=== PATIENT | male | born 1970 | race American Indian/Alaskan Native ===

== ENCOUNTER 2019-01-10 12:25 | Emergency (ER) | payer SELFPAY ==
--- NOTE | 2019-01-10 12:43 | Emergency Department Report ---
Blank Doc - Documentation Documentation: This is a 48-year-old male that presents with SI. Stated has depression. This initial assessment/diagnostic orders/clinical plan/treatment(s) is/are subject to change based on patient's health status, clinical progression and re- assessment by fellow clinical providers in the ED. Further treatment and workup at subsequent clinical providers discretion. Patient/guardians urged not to elope from the ED as their condition may be serious if not clinically assessed and managed. Initial orders include: 1- Patient sent to MAIN ED for further evaluation and treatment 2- sr. director product management was notified to have patient be brought back AGA. 3- RN was notified to keep patient as close range and observation until room available 4- Patient presents with substantial risk of imminent harm to self, appears to be so unable to care for his/her own physical health and safety as to create an imminently life-endangering crisis, and has committed/expressed life endangering crisis to self. Due to this and other complaints, patient is put on 1013.
[2019-01-10 13:02] LABS: Basophils # (Auto) 0.1 K/mm3 (0.0-0.1); Basophils % (Auto) 1.1 % (0.0-1.8); Eosinophils # (Auto) 0.1 K/mm3 (0.0-0.4); Eosinophils % (Auto) 2.3 % (0.0-4.3); Hematocrit 43.9 % (35.5-45.6); Hemoglobin 14.7 gm/dl (11.8-15.2); Lymphocytes # (Auto) 2.3 K/mm3 (1.2-5.4); Lymphocytes % (Auto) 49.7 % (13.4-35.0); Mean Corpuscular HGB Conc 33 % (32-34); Mean Corpuscular Volume 84 fl (84-94); Monocytes # (Auto) 0.4 K/mm3 (0.0-0.8); Monocytes % (Auto) 7.8 % (0.0-7.3); Platelet Count 235 K/mm3 (140-440); Red Blood Count 5.24 M/mm3 (3.65-5.03); Red Cell Distribution Width 13.5 % (13.2-15.2)
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
[2019-01-10 13:23] LABS: BUN/Creatinine Ratio 13; Blood Urea Nitrogen 16 mg/dL (9-20); Calcium 9.7 mg/dL (8.4-10.2); Hemolysis Index 36
[2019-01-10 14:14] LABS: Alanine Aminotransferase 16 units/L (7-56); Albumin 4.3 g/dL (3.9-5)
[2019-01-10 14:27] LABS: Bilirubin,Direct < 0.2 mg/dL (0-0.2)
[2019-01-10] MEDS ORDERED: BENADRYL PO ONE (20:08)
[2019-01-10 20:27] LABS: Bilirubin,Urine NEG (Negative); Blood,Urine NEG (Negative); Color,Urine Yellow (Yellow); Mucus,Urine FEW /HPF; Protein,Urine <15 mg/dL mg/dL (Negative); Urobilinogen,Urine < 2.0 mg/dL (<2.0)
[2019-01-10 20:29] LABS: Amphetamine Screen,Urine PRESUMPTIVE NEGATIVE; Benzodiazepines Screen,Urine PRESUMPTIVE NEGATIVE; Cannabinoid Screen,Urine PRESUMPTIVE NEGATIVE; Cocaine Screen,Urine PRESUMPTIVE NEGATIVE; Methadone Screen,Urine PRESUMPTIVE NEGATIVE; Opiate Screen,Urine PRESUMPTIVE NEGATIVE
--- NOTE | 2019-01-11 09:24 | Consultation ---
History of Present Illness - Reason for Consult Consult date: 01/11/19 Reason for consult: Mental Health Evaluation Requesting physician: BAUDILIO PANIAGUA - Chief Complaint Chief complaint: It's been rough for me" - History of Present Psychiatric Illness 48 y.o. AA male who presented to [facility] ER for depression and suicide thoughts. Today the patient was calm and cooperative during the assessment. He stated that he have been dealing with life stressors along with the of his mother (201 7) from cancer. 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 He stated that he could not sleep and he wasn't a nice person to be around at work, so he decided to take a leave of absence. He stated that his prison relationship ended recently. He stated that he saw a therapist/psychiatrist and was prescribed several psy medications, but stopped taking them because he was advised by his sister to take herbs instead. He is adamant that his life went "downward" after the the of his mother. He rate his depression 7/10, with 10 being the worse. He denies SI/HI's and AVH's. He acknowledged erratic sleep and nightmares when he does sleep, but denies a poor appetite. He denies recreational drug use and alcohol consumptions (etoh). He stated that he want to start medication/therapy treatment "AGA." Medications and Allergies Allergies Allergy/AdvReac Type Severity Reaction Status Date / Time No Known Allergies Allergy Verified 01/10/19 12:27 Home Medications Medication Instructions Recorded Confirmed Last Taken Type ARIPiprazole 5 mg PO QDAY 01/10/19 01/10/19 Unknown History Escitalopram Oxalate [Lexapro] 5 mg PO DAILY 01/10/19 01/10/19 Unknown History Quetiapine Fumarate [SEROquel XR] 50 mg PO QHS 01/10/19 01/10/19 Unknown History clonazePAM 0.5 mg PO BID 01/10/19 01/10/19 Unknown History Past psychiatric history - Past Medical History Past Medical History: No medical history Past Surgical History: No surgical history - past Psychiatric treatment and history psychiatric treatment history: Hx of mood do. Denies a fam psy hx. - Social History Social history: lives with family Mental Status Exam - Vital signs Last Vital Signs Temp 97.5 F L 01/11/19 07:00 Pulse 85 01/11/19 07:00 Resp 18 01/11/19 07:00 BP 133/84 01/11/19 07:00 Pulse Ox 100 01/11/19 07:00 - Exam Narrative exam: MSE: Appearance: calm, cooperative Behavior: regular eye contact Speech: regular rate and tone Mood: "a little tired" Affect: congruent to mood Thought Process: circumstantial Thought Content: denies SI/HI's and AVH's Motor Activity: lying in bed Cognition: A/O x 3 Insight: fair Judgment: variable to fair Results Result Diagrams: 01/10/19 12:46 01/10/19 12:46 Abnormal lab results 01/10/19 01/10/19 01/10/19 Range/Units 12:46 12:46 12:46 RBC 5.24 H (3.65-5.03) M/mm3 Lymph % (Auto) 49.7 H (13.4-35.0) % [place] % (Auto) 7.8 H (0.0-7.3) % Seg Neutrophils % 39.1 L (40.0-70.0) % Salicylates < 0.3 L (2.8-20.0) mg/dL Acetaminophen < 5.0 L (10.0-30.0) ug/mL All other labs normal. Assessment and Plan Assessment and plan: Impression: MDD. PTSD. Complicated Grieving. Today the patient was calm and cooperative during the assessment. UDS is negative. DDx: R/O Bipolar DO Recommendations/Plan: Reevaluate the patient's 1013 in 24 hours. Continue 1013 and start Lexapro 5 mg PO daily fro depression/PTSD, Melatonin 5 mg PO HS for sl eep, and Prazosin 1 mg PO HS for PTSD symptoms. Discussed possible suicidality/medication induced socrates with the patient reference Lexapro, he verbalized understanding. Dipso: If the patient's 1013 is rescinded, he can follow up with [facility] for outpatient psy services. Staffed with Dr Heide Crowley.
[2019-01-11] MEDS: LEXAPRO PO SCH (10:46)
[2019-01-11] MEDS ORDERED: MINIPRESS PO SCH (22:00)
[2019-01-11] MEDS ORDERED: MELATONIN PO SCH (22:00)
[2019-01-12] MEDS: LEXAPRO PO SCH (10:08)
--- NOTE | 2019-01-12 11:53 | Progress Note ---
Subjective - Reason for Consult Consult date: 01/12/19 Reason for consult: Psychiatric Follow-up Evaluation - Chief Complaint Chief complaint: "I feel great" Patient is a 48 y.o. AA male who presented to the ER for depression and suicide thoughts. Today the patient is calm and cooperative during the assessment. He stated that he have been dealing with life stressors along with the of his mother (2017) from cancer. 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 He verbalizes " I feel great and highly favored." Patient reports appropriate sleep, appetite, and energy. Patient verbalizes going to gym, working on my company, and spending more time with my children are my coping skills. Patient denies SI/HI's, A/VH's and delusions. Provider gained collateral. Patient's sister, Lolly was contacted at 1:57 on 01/12/19. She reports that patient is in no imminent danger to self/ others. He will discharge to her home. Per sister she will ensure that patient follow-up with outpatient psychiatrist. Mental Status Exam - Vital signs Last Vital Signs Temp 97.8 F 01/12/19 07:00 Pulse 79 01/12/19 07:00 Resp 18 01/12/19 07:00 BP 131/92 01/12/19 07:00 Pulse Ox 100 01/12/19 07:00 - Exam Narrative exam: Mental Status Exam Appearance: calm, cooperative Behavior: regular eye contact Speech: regular rate and tone Mood: " I feel great" Affect: congruent to mood Thought Process: circumstantial Thought Content: denies SI/HI's, AVH's, and delusions Motor Activity: ambulatory Cognition: A/O x 3 Insight: fair Judgment: fair Assessment and Plan Impression: MDD. PTSD. Complicated Grieving. Today the patient is calm and cooperative during the assessment. UDS is negative. Mood is euthymic. Patient denies SI/HI's, A/VH's, and delusions. At the time of discharge, patient is in no imminent danger to self/others. Discussed the importance of implementing coping skills and taking medications. Patient verbalizes full understanding. Collateral has been gained. Informed in case of a psychiatric emergency, patient is to call 911, report to the ER, or call the crisis line. DDx: R/O Bipolar DO Recommendations/Plan: 1. Will rescind patient's 1013. No longer meets criteria. 2. Continue Lexapro 5 mg PO daily fro depression/PTSD, Melatonin 5 mg PO HS for sleep, and Prazosin 1 mg PO HS for PTSD symptoms. Discussed possible suicidality/medication induced socrates with the patient reference Lexapro, he verbalized understanding. Disposition: Will rescind patient's 1013 is rescinded, he can follow up with [facility] for outpatient psy services. Will staff with Dr. Heide Crowley.
[2019-01-12 15:13] VITALS: BP 148/91
== END 2019-01-12 15:50 | disposition home or self-care (01) ==
LOC: EEVIPCON 12:25 → ED 12:25
DX: F31.9 Bipolar disorder, unspecified (principal); F41.9 Anxiety disorder, unspecified; Z79.899 Other long term (current) drug therapy
CPT/HCPCS: 36415; 80048; 80076; 80307; 80320; 81001; 85025; 99284; G0480